=== PATIENT | male | born 1960 | race Caucasian/White ===

== ENCOUNTER 2021-07-18 17:33 | Emergency (ER) | payer MEDICARE ==
[2021-07-18] MEDS ORDERED: DIPH,PERTUS(ACELL)TETVAC-LF 0.5 ML VIAL IM ONE (17:35)
[2021-07-18 17:42] VITALS: RESP 18; TEMP 97.5
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
[2021-07-18 18:20] LABS: ALT 34 U/L (4-49); AST 45 U/L (17-59); African American GFR (CKD) 74 (>60 ml/min/1.73 sqM); Albumin 4.3 g/dL (3.5-5.0); Alcohol <10 mg/dL; Alkaline Phosphatase 60 U/L (38-126); Anion Gap 8 mmol/L; Blood Urea Nitrogen 24 mg/dL (9-20); Carbon Dioxide 24 mmol/L (22-30); Chloride 105 mmol/L (98-107); Glucose 98 mg/dL (74-99); Non-African American GFR(CKD) 64 (>60 ml/min/1.73 sqM); Sodium 137 mmol/L (137-145); Total Bilirubin 1.1 mg/dL (0.2-1.3)
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
[2021-07-18 18:21] LABS: Basophils # (A) 0.1 k/uL (0-0.2); Basophils % (A) 1 %; Eosinophils # (A) 0.2 k/uL (0-0.7); Eosinophils % (A) 3 %; HCT 52.7 % (39.0-53.0); HGB 17.7 gm/dL (13.0-17.5); Lymphocytes % (A) 15 %; MCH 32.6 pg (25.0-35.0); MCHC 33.7 g/dL (31.0-37.0); MCV 96.9 fL (80.0-100.0); Mean Platelet Volume 7.1; Monocytes # (A) 0.5 k/uL (0-1.0); Monocytes % (A) 7 %; Neutrophils # (A) 4.9 k/uL (1.3-7.7); Neutrophils % (A) 73 %; Platelet Count 284 k/uL (150-450); Potassium 4.3 mmol/L (3.5-5.1); RBC 5.43 m/uL (4.30-5.90); RDW 13.4 % (11.5-15.5); WBC 6.7 k/uL (3.8-10.6)
[2021-07-18 18:34] LABS: Partial Thromboplastin Time 21.3 sec (22.0-30.0); Prothrombin Time 10.5 sec (9.0-12.0)
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
[2021-07-18 19:40] VITALS: BP 132/85; PULSE 98
== END 2021-07-18 19:40 | disposition home or self-care (01) ==
LOC: EC 17:33
DX: S06.0X9A Concussion with loss of consciousness of unspecified duration, initial encounter (principal); I10 Essential (primary) hypertension; V89.2XXA Person injured in unspecified motor-vehicle accident, traffic, initial encounter
CPT/HCPCS: 36415; 70450; 71045; 72125; 72170; 80053; 80320; 85025; 85610; 85730; 86850; 86900; 86901; 90715; 93005